=== PATIENT | male | born 1975 | race Caucasian/White ===

== ENCOUNTER 2017-06-23 12:04 | Emergency (ER) | payer OTHER ==
[2017-06-23 12:18] VITALS: RESP 18
--- NOTE | 2017-06-23 13:52 | EDPHY ---
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 No paresthesia. No crush injury. Is complaining of left elbow pain PHYSICAL EXAM (Prior to examination, patient consented to physical exam, hands were washed and my usual and customary physical exam procedures followed) 1) GENERAL: Well-developed, well-nourished, alert and oriented. Appears to be in no acute distress. 2) HEAD: Normocephalic 3) HEENT: sclera anicteric 4) LUNGS: Breathing comfortably. 5) SKIN: left lateral elbow 4 cm L-shaped laceration which is superficial, does not involve muscle belly. Soft compartments of left upper extremity 6) MUSCULOSKELETAL: full range of motion of the left elbow including supination pronation which is pain free. 7) NEUROLOGIC: Radial ulnar median nerve function intact distally. Smoking Status: Never smoked Constitutional: Initial Vital Signs Temperature (C) 36.5 C 06/23/17 12:15 Heart Rate 68 06/23/17 12:15 Respiratory Rate 18 06/23/17 12:15 Blood Pressure 168/103 H 06/23/17 12:15 O2 Sat (%) 96 06/23/17 12:15 O2 Delivery Mode Room Air Allergies/Adverse Reactions: No Known Allergies Allergy (Unverified 06/23/17 12:15) Home Medications: Medication Instructions Recorded Cephalexin [Keflex] 500 mg PO QID 5 Days 06/23/17 Lisinopril 06/23/17 MDM/Departure - MDM Imaging Results: Imaging Impressions Elbow X-Ray 06/23/17 12:18 Impression: Nothing acute identified. 2. Left Elbow, 3 views History: Pain, pinned under log Comparison: None Findings: The elbow joint is normally aligned. No fracture or elbow joint effusion is identified. No radiopaque foreign material. Bandaging material surrounds the elbow. Impression: Nothing acute identified. Hand X-Ray 06/23/17 12:18 Impression: Nothing acute identified. 2. Left Elbow, 3 views History: Pain, pinned under log Comparison: None Findings: The elbow joint is normally aligned. No fracture or elbow joint effusion is identified. No radiopaque foreign material. Bandaging material surrounds the elbow. Impression: Nothing acute identified. Images reviewed by myself Procedures: Procedure: Laceration repair. I explained the indications, risks and benefits for both laceration repair and anesthetic administration. Verbal consent was obtained from the patient . The laceration on the left elbow was anesthetized using 0.5% bupivicaine with epinephrine . After anesthetic administered the patient was observed for a period of time and had no apparent adverse effects. The wound was cleaned, prepped, draped in normal sterile fashion and explored to its base. No foreign body seen, no foreign bodies palpated. There were no deep structures involved. No tendon injury was identified. The wound was repaired with 12 simple interrupted 4 0 Prolene suture . The wound repair was complex. The procedure was performed by myself. Patient has been informed that scarring will occur, although efforts have been made to minimize this. ED Course/Re-evaluation: Re-evaluation with serial exams. Soft compartments, doubt compartment syndrome. Doubt traumatic arthrotomy. Wound is sutured, placed in sling, given orthopedic follow-up instructions and sutures to be removed in 10 days. - Depart Disposition: Home, Routine, Self-Care Clinical Impression: Laceration of left elbow Qualifiers: Encounter type: initial encounter Qualified Code(s): S51.012A - Laceration without foreign body of left elbow, initial encounter Condition: Good Instructions: Care For Your Stitches (ED), Laceration (ED) Additional Instructions: Return to the ER if you develop redness, swelling, discharge, warmth to the wound, red streaks going up your arm , or any other symptoms that concern you.Return to the ER immediately if you experience discoloration, have worsening pain, numbness, tingling, or any other symptoms that concern you. If you received x-rays in the emergency department today, be advised, that ligamentous, tendon, muscular, and other non-bony injury cannot be fully ruled out. Try to keep your affected extremity elevated above the level of your chest , and keep cold packs on the affected area, for the next 48 hours. Prescriptions: Cephalexin [Keflex] 500 mg PO QID 5 Days Referrals: Markos Alfred MD [Medical Doctor] - 2-3 days, call for appt. Return, to the ER in 10 days for suture removal [Other] - As per Instructions
[2017-06-23 14:57] VITALS: BP 137/85; PULSE 65; TEMP 98.1; O2SAT 95
== END 2017-06-23 14:56 | disposition home or self-care (01) ==
PROC: 0HQEXZZ Repair Left Lower Arm Skin, External Approach (ICD-10-PCS; principal; 2017-06-23)
DX: S51.012A Laceration without foreign body of left elbow, initial encounter (principal); W20.8XXA Other cause of strike by thrown, projected or falling object, initial encounter